=== PATIENT | male | born 1995 | race African-American/Black ===

== ENCOUNTER 2017-03-23 11:43 | Emergency (ER) | payer MEDICAID ==
[~2017-03-23] VITALS: Ht 177.8 cm; Wt 71.1 kg
[2017-03-23 14:10] VITALS: BP 122/77
== END 2017-03-23 16:00 | disposition home or self-care (01) ==
LOC: ER 15:00
DX: M79.1 Myalgia (principal); F12.10 Cannabis abuse, uncomplicated
CPT/HCPCS: 99283

== ENCOUNTER 2019-12-23 09:56 | Emergency (ER) | payer MEDICAID ==
[~2019-12-23] VITALS: Ht 175.3 cm; Wt 73.0 kg
[2019-12-23 10:02] VITALS: BP 124/81
== END 2019-12-23 13:03 | disposition home or self-care (01) ==
LOC: ER 09:56
DX: J06.9 Acute upper respiratory infection, unspecified (principal); J45.909 Unspecified asthma, uncomplicated; F12.10 Cannabis abuse, uncomplicated; R07.9 Chest pain, unspecified
CPT/HCPCS: 71045; 87804; 93005; 99284

== ENCOUNTER 2025-05-18 11:49 | Emergency (ER) | payer MEDICAID ==
[~2025-05-18] VITALS: Ht 177.8 cm; Wt 68.0 kg
[~2025-05-18 11:49] MED LIST: ALBU6.7H3 INH; P20 MT
[2025-05-18 12:05] VITALS: O2SAT 98
[2025-05-18] MEDS: MAGNESIUM/ALUMINUM HYDROXIDE/SIMETHICONE 30ML UDC PO ONE (12:32)
[2025-05-18] MEDS: FAMOTIDINE 20MG TABLET PO SCH (12:32)
[2025-05-18 12:55] LABS: BASOPHILS % 0.2 % (0.0-2.0); EOSINOPHILS % 10.4 % (0.0-5.0); HEMATOCRIT. 52.8 % (42.0-52.0); HEMOGLOBIN. 17.6 g/dL (14.0-18.0); LYMPHOCYTES % 23.4 % (20.0-50.0); MEAN PLATELET VOLUME 7.5 fl (7.4-10.4); MONOCYTES % 9.8 % (2.0-8.0); NEUTROPHILS % 56.2 % (40.0-76.0); PLATELET 422 x1000/uL (130-400); RED BLOOD CELL COUNT 6.29 mill/uL (4.7-6.1); RED CELL DISTRIBUTION WIDTH 14.4 % (11.6-14.6)
[2025-05-18 12:58] LABS: CLARITY URINE CLOUDY (CLEAR); COLOR URINE DARK YELLOW (YELLOW); GLUCOSE URINE NEGATIVE (NEGATIVE); KETONES URINE TRACE (NEGATIVE); LEUKOCYTE ESTERASE URINE 1+ (NEGATIVE); NITRITE URINE NEGATIVE (NEGATIVE); OCCULT BLOOD URINE NEGATIVE (NEGATIVE); PH URINE 6.0 (4.5-8.0); PROTEIN URINE 3+ (NEGATIVE); SPECIFIC GRAVITY URINE 1.033 (1.005-1.030); UROBILINOGEN URINE 1.0 E.U./dL (0.2-1.0)
[2025-05-18 13:09] LABS: CREATININE 1.2 mg/dL (0.6-1.3); UREA NITROGEN BLOOD 8 mg/dL (9-23)
[2025-05-18 13:11] LABS: ASPARTATE AMINOTRANSFERASE 14 IU/L (<34); BILIRUBIN DIRECT 0.2 mg/dL (<=3.0)
[2025-05-18 13:12] LABS: BILIRUBIN TOTAL 0.8 mg/dL (0.1-1.0); PROTEIN TOTAL 9.5 g/dL (6.0-8.3)
[2025-05-18 13:40] LABS: BACTERIA URINE 3+; RBC URINE 0-2 /hpf (0-2); SQUAMOUS EPITHELIAL CELL URINE NONE SEEN /lpf (RARE/1+); WBC URINE 25-50 /hpf (0-2); YEAST URINE NONE SEEN
[2025-05-18] MEDS ORDERED: FAMO40TA70 MT (19:43)
[2025-05-18] MEDS ORDERED: DOXY150T9 MT (19:43)
[2025-05-18] MEDS: DOXYCYCLINE HYCLATE 100MG CAPSULE PO SCH (19:55)
[2025-05-18] MEDS: LIDOCAINE HCL 1% 20ML VIAL INFIL SCH (19:56)
[2025-05-18] MEDS: CEFTRIAXONE SODIUM 500MG VIAL IM SCH (19:56)
[2025-05-18 20:05] VITALS: BP 149/95; PULSE 83; RESP 17; TEMP 36.6; O2SAT 99
== END 2025-05-18 20:15 | disposition home or self-care (01) ==
LOC: ER 11:49
DX: N39.0 Urinary tract infection, site not specified (principal); K29.70 Gastritis, unspecified, without bleeding; F12.10 Cannabis abuse, uncomplicated; J45.909 Unspecified asthma, uncomplicated
CPT/HCPCS: 80076; 80048; 81003; 83690; 85025; 87086; 36415; 74176; 93005; 96372; 99285; J0696; J2003; Z7610 ×3